=== PATIENT | male | born 1990 | race Caucasian/White ===

== ENCOUNTER 2025-01-08 01:09 | Outpatient (CLI) | payer BC, SELFPAY ==
[2025-01-08 11:21] LABS: Abs Immature Grans 0.01 10^3/uL (0.0-0.06); HCT 46.4 % (40.0-50.0); HGB 16.0 g/dL (13.5-17.5); Immature Grans % 0.2 %; MCH 29.9 pg (27.0-33.0); MCHC 34.5 % (32.0-36.0); MCV 87 fL (80-95); MPV 9.8 fL (8.0-11.0); Platelet Count 284 10^3/uL (130-400); RBC 5.36 10^6/uL (4.36-5.78); RDW 11.4 % (11.8-14.1); RDW-SD 35.8 fL; WBC 5.89 10^3/uL (4.4-10.8)
[2025-01-08 11:35] LABS: Hemoglobin A1C 5.3 % (<5.7)
[2025-01-08 12:24] LABS: Iron 114 ug/dL (65-175)
[2025-01-08 12:40] LABS: ALT 26 U/L (16-63); AST 13 U/L (15-37); Albumin 4.4 g/dL (3.4-5.0); Alkaline Phosphatase 55 U/L (46-116); Anion Gap 7.6 mmol/L (3-11); BUN 9 mg/dL (7-18); Bilirubin, Total 0.7 mg/dL (0.2-1.0); CO2 30.4 mmol/L (21.0-32.0); Calcium 9.5 mg/dL (8.5-10.1); Calculated LDL 163 mg/dL (<100); Chloride 103 mmol/L (98-107); Cholesterol 223 mg/dL (<200); Estimated GFR 82.40 (mL/min/1.73m2); Folate > 20.0 ng/mL (8.6-20.0); Glucose 96 mg/dL (74-106); HDL Cholesterol 38 mg/dL (>or=40); Potassium 4.7 mmol/L (3.5-5.1); Sodium 141 mmol/L (136-145); TSH (W/Ref FT4) 1.11 uIU/mL (0.36-3.74); Total Protein 7.8 g/dL (6.4-8.2); Triglyceride 113 mg/dL (<150); Vitamin B12 831 pg/mL (193-986); Vitamin D 25 Total 28 ng/mL (30-100)
[2025-01-11 11:43] LABS: Lyme Ab w Rflx to Lyme Confirm Negative (Negative)
== END 2025-01-08 01:10 | disposition home or self-care (01) ==
LOC: LBO 01:09
PROVIDERS: Visit Provider Nurse Practitioner Family
DX: R53.83 Other fatigue (principal); Z12.5 Encounter for screening for malignant neoplasm of prostate; Z13.1 Encounter for screening for diabetes mellitus; Z13.220 Encounter for screening for lipoid disorders; Z13.228 Encounter for screening for other metabolic disorders; F41.9 Anxiety disorder, unspecified; E78.5 Hyperlipidemia, unspecified; I10 Essential (primary) hypertension
CPT/HCPCS: 36415; 80053; 80061; 82306; 82607; 82746; 83036; 83540; 84443; 85025; 85045; 86038; 86618

== ENCOUNTER 2025-01-12 04:50 | Outpatient (CLI) | payer BC, SELFPAY ==
--- NOTE | 2025-01-12 | DI.RAD_ITS ---
Exam(s) XR LUMBAR SPINE COMP W FLEX/EX EXAM: XR LUMBAR SPINE COMP W FLEX/EX CLINICAL HISTORY: CHRONIC LOWER BACK PAIN, M54.50 G89.29. TECHNIQUE: 2D digital imaging was performed. Five views. COMPARISON: No exams were available for comparison FINDINGS: BONES: No fracture or destructive lesion. Vertebral body heights are maintained. Mild facet hypertrophy is present . DISKS: There is mild to moderate narrowing of the L5-S1 disc space and small endplate osteophytes. The remaining intervertebral disc spaces are maintained. ALIGNMENT: Lumbar spinal alignment is within normal limits. SOFT TISSUE: Normal. IMPRESSION: [id number] degenerative disc changes at L5-S1. DATA REPOSITORY: RADIATION DOSE DELIVERED:
== END 2025-01-12 05:10 ==
LOC: DI 01-13 04:50
PROVIDERS: Visit Provider Nurse Practitioner Family
DX: M51.360 Other intervertebral disc degeneration, lumbar region with discogenic back pain only (principal)
CPT/HCPCS: 72114